=== PATIENT | female | born 1985 | race Caucasian/White ===

== ENCOUNTER → 2019-07-25 | Outpatient (CLI) | payer OTHER | LOC: COL.RAD 07:49 | DX: R10.9 Unspecified abdominal pain (principal); R11.0 Nausea ==

== ENCOUNTER → 2019-09-10 | Outpatient (CLI) | payer OTHER | LOC: COL.RAD 09:50 | DX: R10.9 Unspecified abdominal pain (principal); R11.0 Nausea | CPT/HCPCS: A9537; J2805 ==

== ENCOUNTER → 2019-12-17 | Outpatient (CLI) | payer OTHER | LOC: MHCPAIN 10:19 | DX: M47.812 Spondylosis without myelopathy or radiculopathy, cervical region (principal); M54.81 Occipital neuralgia; M54.2 Cervicalgia; R51 Headache; G89.29 Other chronic pain | CPT/HCPCS: G0463; J1040 ==

== ENCOUNTER → 2020-03-17 | Outpatient (CLI) | payer OTHER | LOC: MHCPAIN 10:17 | DX: M54.81 Occipital neuralgia (principal); M54.2 Cervicalgia; R51 Headache; G89.29 Other chronic pain | CPT/HCPCS: G0463 ==

== ENCOUNTER → 2020-03-31 | Outpatient (CLI) | payer OTHER | LOC: MHCPAIN 09:12 | DX: M79.18 Myalgia, other site (principal); M54.81 Occipital neuralgia; M54.2 Cervicalgia | CPT/HCPCS: J1040 ==

== ENCOUNTER → 2020-06-17 | Outpatient (CLI) | payer OTHER | LOC: MHCPAIN 13:28 | DX: M47.812 Spondylosis without myelopathy or radiculopathy, cervical region (principal); M54.81 Occipital neuralgia; M79.10 Myalgia, unspecified site; M54.2 Cervicalgia; G89.29 Other chronic pain ==

== ENCOUNTER 2021-07-13 13:44 | Outpatient (CLI) | payer OTHER ==
[~2021-07-13] VITALS: Ht 175.3 cm; Wt 59.3 kg
[2021-07-13] MEDS ORDERED: CYMBALTA 60MG60 MG PO (14:16)
[2021-07-13] MEDS ORDERED: PROZAC40 MG PO (14:16)
[2021-07-13] MEDS ORDERED: REXULTI2 MG PO (14:17)
[2021-07-13] MEDS ORDERED: ZYPREXA2.5 MG PO (14:19)
[2021-07-13] MEDS ORDERED: UBRELVY50 MG PO (14:20)
[2021-07-13] MEDS ORDERED: ALDACTONE 100M100 MG PO (14:20)
[2021-07-13] MEDS ORDERED: REGLAN 10MG10 MG/TAB PO (14:21)
[2021-07-13] MEDS ORDERED: DHEA 10 MG TAB1 EACH PO (14:21)
[2021-07-13] MEDS ORDERED: TORADOL 10MG TA10 MG PO (14:21)
[2021-07-13] MEDS ORDERED: NAPROSYN500 MG PO (14:22)
[2021-07-13] MEDS ORDERED: AMERGE 2.5MG T2.5 MG PO (14:22)
[2021-07-13] MEDS ORDERED: ZANAFLEX CAPSULE4 MG PO (14:23)
[2021-07-13] MEDS ORDERED: ONZETRA XSAIL11 MG NS (14:23)
[2021-07-13 14:40] VITALS: BP 116/79; PULSE 99; TEMP 97.9
[2021-07-13 14:45] VITALS: BP 120/70; PULSE 89; TEMP 97.9
[2021-07-13 15:00] VITALS: BP 122/72; PULSE 90; TEMP 97.9
== END 2021-07-13 16:03 | disposition home or self-care (01) ==
LOC: EUO 13:44
DX: G43.709 Chronic migraine without aura, not intractable, without status migrainosus (principal)
CPT/HCPCS: J3032

== ENCOUNTER 2021-10-05 13:57 | Outpatient (CLI) | payer OTHER ==
[~2021-10-05] VITALS: Ht 175.3 cm; Wt 58.2 kg
[~2021-10-05 13:57] MED LIST: ALDACTONE50 MG PO; AMERGE 2.5MG T2.5 MG PO; CYMBALTA 60MG60 MG PO; D H E IJ; NAPROSYN500 MG PO; ONZETRA XSAIL11 MG NS; PROZAC40 MG PO; REGLAN 10MG10 MG/TAB PO; REXULTI2 MG PO; TORADOL 10MG TA10 MG PO; UBRELVY50 MG PO; ZANAFLEX CAPSULE4 MG PO; ZYPREXA2.5 MG PO; [UNRECOGNIZED DRUG - OTHER] IJ
[2021-10-05 14:48] VITALS: BP 106/69; PULSE 85; TEMP 98
[2021-10-05] MEDS ORDERED: VIIBRYD40 MG PO (14:48)
[2021-10-05 14:55] VITALS: BP 108/73; PULSE 84
[2021-10-05 15:10] VITALS: BP 99/65; PULSE 84
[2021-10-05 15:25] VITALS: BP 101/67; PULSE 86
[2021-10-05 15:40] VITALS: BP 101/67; PULSE 92
== END 2021-10-05 17:26 | disposition home or self-care (01) ==
LOC: EUO 13:57
DX: G43.709 Chronic migraine without aura, not intractable, without status migrainosus (principal)
CPT/HCPCS: J3032

== ENCOUNTER 2022-02-08 13:45 | Outpatient (CLI) | payer OTHER ==
[~2022-02-08] VITALS: Ht 175.3 cm; Wt 62.9 kg
[~2022-02-08 13:45] MED LIST changes: +VIIBRYD40 MG PO
[2022-02-08 14:28] VITALS: BP 94/66; PULSE 88
[2022-02-08 14:43] VITALS: BP 103/70; PULSE 96
[2022-02-08 14:58] VITALS: BP 97/63; PULSE 90
[2022-02-08 15:29] VITALS: BP 93/58; PULSE 100; TEMP 97.9
== END 2022-02-08 15:34 ==
LOC: EUO 13:45
DX: G43.709 Chronic migraine without aura, not intractable, without status migrainosus (principal)
CPT/HCPCS: J3032

== ENCOUNTER 2022-10-22 08:44 | Outpatient (RCR) | payer OTHER ==
[~2022-10-22] VITALS: Ht 175.3 cm; Wt 59.5 kg
[2022-10-22] VITALS (8 sets, daily range): BP systolic 99–108; BP diastolic 66–72; PULSE 75–86; TEMP 98
[~2022-10-22 08:44] MED LIST changes: +VYEPTI100 MG/1 M IV
--- NOTE | 2022-10-22 11:33 | NUR ---
PT CAME IN FOR A VYEPTI INFUSION. IV WAS PLACED, MEDS, AND HX REVIEWED. PT TOLERATED THE 30 MIN INFUSION WITH STABLE VITALS. STAYED FOR AN HOUR TO BE MONITORED. VITAL SIGNS STABLE DURING THIS TIME. IV WAS REMOVED PRIOR TO DC. NO QUESIONS OR CONCERNS. PT WALKED OFF THE EU ON THEIR OWN.
== END 2022-10-22 11:05 ==
LOC: EUO 08:44
DX: G43.709 Chronic migraine without aura, not intractable, without status migrainosus (principal)
CPT/HCPCS: J3032